=== PATIENT | male | born 2000 | race Caucasian/White ===

== ENCOUNTER 2021-11-06 20:34 | Emergency (ER) | payer OTHER ==
[2021-11-06 20:48] LABS: HEMOGLOBIN 16.1 gm/dl (14.0-17.5); RED BLOOD COUNT 5.26 M/UL (4.20-5.50); WHITE BLOOD COUNT 13.4 K/UL (4.5-11.0)
[2021-11-06 21:11] LABS: BUN/CREATININE RATIO 14 (0-10)
== END 2021-11-07 00:07 | disposition short-term general hospital (02) ==
LOC: ER1 20:34
PROVIDERS: Emergency Medicine
DX: S22.059A Unspecified fracture of T5-T6 vertebra, initial encounter for closed fracture (principal); S22.062A Unstable burst fracture of T7-T8 vertebra, initial encounter for closed fracture; S22.069A Unspecified fracture of T7-T8 vertebra, initial encounter for closed fracture; S22.079A Unspecified fracture of T9-T10 vertebra, initial encounter for closed fracture; S40.812A Abrasion of left upper arm, initial encounter; S40.811A Abrasion of right upper arm, initial encounter; V23.9XXA Unspecified motorcycle rider injured in collision with car, pick-up truck or van in traffic accident, initial encounter; Y92.410 Unspecified street and highway as the place of occurrence of the external cause
CPT/HCPCS: 70450; 71045; 72125; 72128; 72131; 72170; 80053; 83605; 85025; 85610; 85730; 86850; 86900; 86901; 93005; 96374; 96375; 99285; G0480; J1170; J2270; J2405; Q9967